=== PATIENT | female | born 1960 | race Caucasian/White ===

== ENCOUNTER → 2016-08-06 | Outpatient (CLI) | payer OTHER ==
--- NOTE | 2016-08-07 08:22 | RAD ---
EXAM DESCRIPTION: XR FOOT 3 OR MORE VIEWS CLINICAL HISTORY: FOOT PAIN COMPARISON: None available FINDINGS: Three views of the left foot show no acute fracture or malalignment. There is calcaneal spurring at the insertion sites of the plantar fascia Achilles tendon. No radiopaque foreign body or soft tissue gas. The joint spaces are fairly well maintained. IMPRESSION: Calcaneal spurring, otherwise unremarkable exam. Electronically signed by: Florian Darden DO 08/07/2016 08:20
== END ==
LOC: LAB.O 18:13
PROVIDERS: ATTEND Nurse Practitioner Family
DX: M79.672 Pain in left foot (principal); M77.32 Calcaneal spur, left foot

== ENCOUNTER 2017-01-21 16:55 | Emergency (ER) | payer OTHER ==
[2017-01-21] MEDS ORDERED: NITROGLYCERIN 0.4 MG 25 EA TAB SL ONE ×2 (17:04)
--- NOTE | 2017-01-21 17:12 | ED.PDOC ---
History of Present Illness - General Chief Complaint: Chest Pain/ND Stated Complaint: substernal/epigastric pain radiating to back/R shoulder Time Seen by Provider: 01/21/17 17:01 Source: patient, RN notes reviewed, Vital Signs reviewed Exam Limitations: no limitations - History of Present Illness Initial Comments: Patient reports just after lunch, ~1 pm, she developed sharp, stabbing lower substernal/epigastric pain that went through to her back. She took some Alkaseltzer and a nap but when she woke up the pain was still present but was a dull ache 3/10. + SOB, nausea and diaphoresis. Feels like she can't take a deep breath. No history of cardiac issues. No family hx of cardiac issues, both parents passed from cancer. She does have a history of reflux but was concerned because symptoms did not resolve with OTC medications. Timing/Duration: 4-6 hours Severity/Quality: mild, severe, aching, dull, sharp, stabbing Location: substernal, epigastric Chest Pain Radiation: back Activities at Onset: other - just finished eating Prior Chest Pain/Cardiac Workup: no prior chest pain, no prior cardiac workup Improving Factors: medication - improved but did not resolve with antacids Nitro Today/Relief: 0.4 mg x 1, provided by ED, mild relief - pain improved from 3/10 to 1/10 with resolution of R shoulder pain Aspirin Treatment Today: 81 mg x 4, provided by ED Associated Symptoms: back pain, diaphoresis, heartburn, nausea/vomiting, shortness of breath Allergies/Adverse Reactions: Allergies NO KNOWN ALLERGY Allergy (Verified 01/21/17 17:20) Review of Systems - Review of Systems Constitutional: States: diaphoresis. Denies: chills, fever, malaise, weakness EENTM: States: no symptoms reported Respiratory: States: see HPI, short of breath Cardiology: States: see HPI, chest pain. Denies: edema, palpitations, syncope Gastrointestinal/Abdominal: States: see HPI, abdominal pain, nausea. Denies: constipation, diarrhea, vomiting Genitourinary: States: no symptoms reported Musculoskeletal: States: back pain Skin: States: no symptoms reported Neurological: States: no symptoms reported Endocrine: States: no symptoms reported Hematologic/Lymphatic: States: no symptoms reported Family Medical History - Family History Mother Family History: Unknown Physical Exam - Physical Exam General Appearance: Alert, Anxious, No apparent distress, Well Developed, Well Groomed, Well Hydrated, Well Nourished, Other - appears uncomfortable and SOB Neck: non-tender, full range of motion, supple, normal inspection Respiratory: chest non-tender, lungs clear, normal breath sounds, no respiratory distress, no accessory muscle use Cardiovascular/Chest: normal peripheral pulses, regular rate, rhythm, no edema, no gallop, no JVD, no murmur Peripheral Pulses: dorsalis pedis,right: 2+, dorsalis pedis,left: 2+ Gastrointestinal/Abdominal: normal bowel sounds, non tender, soft, no organomegaly, no pulsatile mass Extremity: normal range of motion, non-tender, normal inspection, no pedal edema Neurologic: alert, normal mood/affect, oriented x 3 Skin Exam: normal color, warm/dry Lymphatic: no adenopathy Comments: Vital Signs - 24 hr 01/21/17 01/21/17 01/21/17 16:58 17:28 18:00 Temperature 97.1 F L Pulse Rate [ 66 67 63 left brachial] Respiratory 20 20 18 Rate Blood Pressure 157/98 114/73 129/79 [left brachial] O2 Sat by Pulse 100 100 98 Oximetry Progress - Progress Progress: 01/21/17 18:00 Initial labs, EKG and CXR look good. Patient reports still having some mild back pain but CP and SOB have improved. She would really like to go home and not wait for the second set of cardiac enzymes. The initial set was drawn >4 hours after the onset of her symptoms. Will give a GI cocktail and see if her symptoms resolve. She is agreeable to waiting to see if this helps. 01/21/17 18:12 Patient reports symptoms are completely resolved with the GI cocktail and would like to go home. Will d/c home with warning to return if symptoms recur. - Results/Orders Results/Orders: Laboratory Tests 01/21/17 01/21/17 17:15 17:15 WBC 8.1 RBC 4.99 Hgb 14.8 Hct 44.0 MCV 88.2 MCH 29.6 MCHC 33.6 RDW 13.9 Plt Count 246 MPV 8.9 Absolute Neuts (auto) 4.90 Absolute Lymphs (auto) 2.10 Absolute Monos (auto) 0.70 Absolute Eos (auto) 0.30 Absolute Basos (auto) 0.10 Neutrophils % 60.1 Lymphocytes % 26.3 Monocytes % 9.1 H Eosinophils % 3.7 Basophils % 0.8 Sodium 139 Potassium 3.9 Chloride 106 Carbon Dioxide 25 Anion Gap 11.9 L BUN 13 Creatinine 0.97 BUN/Creatinine Ratio 13.4 Random Glucose 99 Serum Osmolality 277.7 Calcium 9.2 Total Bilirubin 0.3 AST 24 ALT 23 Alkaline Phosphatase 38 L Creatine Kinase 86 CK-MB (CK-2) 2.0 CK-MB (CK-2) % Not Reportable Troponin I < 0.02 B-Natriuretic Peptide 55.4 Serum Total Protein 7.2 Albumin 4.2 Globulin 3.0 Albumin/Globulin Ratio 1.4 - EKG/XRAY/CT EKG: Sinus, no ST T wave changes Comments: Rate 61 XRAY: chest - Normal per Radiologist Departure - Departure Clinical Impression: Esophageal spasm Chest pain Qualifiers: Chest pain type: unspecified Qualified Code(s): R07.9 - Chest pain, unspecified Time of Disposition: 18:13 Disposition: Discharge to Home or Self Care Condition: Good Departure Forms: ED Discharge - Pt. Copy, Patient Portal Self Enrollment Instructions: DI for Chest Pain Diet: resume usual diet Activity: increase activity as tolerated Referrals: Sandeep Andrews MD [Primary Care Provider] - 1-2 Weeks
[2017-01-21] MEDS ORDERED: ASPIRIN (CHEWABLE) 81 MG TAB PO ONE (17:14)
--- NOTE | 2017-01-21 17:23 | RAD ---
EXAM DESCRIPTION: Chest,1 View CLINICAL HISTORY: 56 years Female, chest pain/SOB COMPARISON: None. TECHNIQUE: AP portable chest. FINDINGS: Fair expansion of the lungs is evident without consolidation, layering effusion, or large mass. Heart size and vascularity appear normal for AP technique and degree of inspiration. No gross bony, hilar, or mediastinal abnormalities are noted. IMPRESSION: Normal chest, one view Electronically signed by: Phill Arredondo MD 01/21/2017 5:22 PM CDT
[2017-01-21 17:33] VITALS: TEMP 97.1
[2017-01-21] MEDS ORDERED: LIDOCAINE VIS-MYLANTA 30 ML UD PO ONE (17:54)
[2017-01-21 18:03] VITALS: BP 129/79; O2SAT 98
== END 2017-01-21 18:22 | disposition home or self-care (01) ==
LOC: ER 16:55
DX: K22.4 Dyskinesia of esophagus (principal); R07.9 Chest pain, unspecified

== ENCOUNTER → 2019-04-11 | Outpatient (CLI) | payer BC, OTHER ==
--- NOTE | 2019-04-11 17:42 | MRI ---
PROVIDED CLINICAL HISTORY/REASON FOR EXAM: CERVICAL RADICULITIS TECHNIQUE: Multiplanar, multisequence MRI examination performed of the cervical spine without intravenous contrast material. COMPARISON: August 31, 2012, March 31, 2019 FINDINGS: Alignment: No acute subluxation. Minimal degenerative retrolisthesis C3 on C4. Postoperative: C5-C7 anterior cervical discectomy and fusion. Fracture: None present. Prevertebral / Paraspinal Soft Tissues: Unremarkable. Cervicomedullary Junction: Unremarkable. Cervical Spinal Cord: Normal. C1/2: No significant abnormality. C2/3: Asymmetric left disc bulge osteophyte complex. Moderate left neural foraminal narrowing. No significant right neural foraminal narrowing. No significant central canal stenosis. Left facet and uncinate process hypertrophy. C3/4: Symmetric disc bulge osteophyte complex. The extruded disc contents extend into the canal by approximately 2 mm. Mild central canal stenosis. Indentation of the ventral cord. No underlying cord signal abnormality. Moderate bilateral neural foraminal narrowing. Bilateral facet and uncinate process hypertrophy. C4/5: Asymmetric right disc bulge osteophyte complex. Severe right and moderate left neural foraminal narrowing. Bilateral facet and uncinate process hypertrophy. Mild central canal stenosis. No underlying cord signal abnormality. C5/6: Discectomy and fusion. Asymmetric right osteophytosis posteriorly. Mild left neural foraminal narrowing. Moderate right neural foraminal narrowing. No significant central canal stenosis. C6/7: Discectomy and fusion. Asymmetric right osteophytosis posteriorly. Mild left and moderate right neural foraminal narrowing. No significant central canal stenosis. C7/T1: Right nerve root sleeve cyst measuring 9 mm, stable. No significant central canal or neural foraminal narrowing. IMPRESSION: 1. Redemonstrated C5-C7 anterior cervical discectomy and fusion. 2. Multilevel cervical spondylosis with neural foraminal narrowing and central canal stenosis as above. Electronically signed by: Navid Whitten MD 04/11/2019 5:40 PM CDT
--- NOTE | 2019-04-11 18:12 | MRI ---
EXAM DESCRIPTION: Knee,Left CLINICAL HISTORY: Possible MENISCUS TEAR, pain, instability. No injuries recalled. COMPARISON: 02/18/2019. TECHNIQUE: MRI of the left knee is performed with multiplanar multi sequence imaging, without intravenous contrast. FINDINGS: Bone and joint small tricompartmental osteophyte formation. No focal bony contusion or acute fracture. Small knee knee joint effusion. Cartilage: Grade two chondrosis involves the medial knee compartment. Grade two chondrosis involves the lateral knee compartment with focal grade 4 chondral fissuring along the lateral tibial plateau. Patchy areas of grade 4 chondral loss at the lateral patella facet and lateral trochlear, grade 3 chondral loss at the medial patellar facet. Medial meniscus: Nondisplaced horizontal cleavage tear of the posterior horn and body surfacing inferiorly. Lateral meniscus: Intact Anterior cruciate ligament: Intact Posterior cruciate ligament: Intact Medial collateral ligament: Intact Lateral collateral ligament: Intact Popliteus tendon: Intact Biceps femoris tendon: Intact Iliotibial band: Intact Medial and lateral retinaculum: Intact Extensor mechanism: The distal quadriceps tendon is intact. The patella tendon is intact. Soft tissues: No Kat's cyst. Small ganglion cyst measuring 2 cm adjacent to the lateral head gastrocnemius proximal femoral attachment and ganglion cyst measuring 1.7 cm posterior to the distal PCL. IMPRESSION: 1. Nondisplaced medial meniscus tear. 2. Moderate right knee osteoarthrosis with patchy areas of grade 4 (full-thickness) chondral loss at the patellofemoral compartment. 3. Small posterior knee ganglion cysts. Electronically signed by: Andrae Cain DO 04/11/2019 6:10 PM CDT
--- NOTE | 2019-04-12 07:52 | MRI ---
EXAM DESCRIPTION: Shoulder,Right CLINICAL HISTORY: 58 years Female, SHOULDER IMPINGEMENT SYNDROME COMPARISON: None. TECHNIQUE: Noncontrast multiplanar multisequence magnetic resonance imaging of the right shoulder. FINDINGS: Severe acromioclavicular joint osteoarthrosis present with marrow reactive signal within the distal clavicle on the opposing acromion. Large undersurface spurs are present extending into the rotator cuff outlet indenting the myotendinous junction of the supraspinatus. Moderate size subacromial/subdeltoid bursitis. There is type II acromial morphology. No significant anterolateral downsloping is present. Mild thickening along the coracoacromial ligament is present often associated with adhesive capsulitis. The supraspinatus, infraspinatus and subscapularis tendons exhibit normal thickness and signal intensity. No high-grade partial thickness or full-thickness rotator cuff tendon tear is present. No muscle atrophy. The long head of the biceps tendon is positioned within the intertubercular groove. The bicipital labral anchor is intact. There is mild undersurface fraying involving the posterior aspect of the superior labrum. No high-grade chondral labral separation or labral tearing. Glenohumeral joint articular surface is smooth. No glenoid rim sclerosis. There is no Hill-Sachs deformity. IMPRESSION: Severe AC joint osteoarthritis. Adhesive capsulitis. Moderate subacromial/subdeltoid bursitis. Intact rotator cuff. No high-grade chondral labral separation or labral tearing. Electronically signed by: Misael Frost MD 04/12/2019 7:51 AM CDT
== END ==
LOC: MRI 10:58
PROVIDERS: ATTEND Family Medicine
DX: S83.242D Other tear of medial meniscus, current injury, left knee, subsequent encounter (principal); M67.462 Ganglion, left knee; M50.10 Cervical disc disorder with radiculopathy, unspecified cervical region; M75.41 Impingement syndrome of right shoulder; M19.011 Primary osteoarthritis, right shoulder; M75.01 Adhesive capsulitis of right shoulder; M75.51 Bursitis of right shoulder; M17.11 Unilateral primary osteoarthritis, right knee

== ENCOUNTER → 2019-04-28 | Outpatient (CLI) | payer BC ==
--- NOTE | 2019-04-30 10:36 | RAD ---
EXAM DESCRIPTION: Knee,Left Complete: CR/DR/XR. CLINICAL HISTORY: 58 years FemaleKNEE PAIN COMPARISON: Radiographs of the pelvis on the same visit. MRI scan of the knee 04/11/2019. TECHNIQUE: 4 views AP lateral and PA standing and patellar sunrise view left knee. FINDINGS: Marginal spur superior patella, lateral patella, and in the tibial spine. Minimal narrowing of the medial compartment. Overall bone density is decreased. No fracture or significant effusion. No abnormal radiodense objects in the soft tissues or joint spaces. IMPRESSION: Bicompartmental osteoarthritis medial and patellofemoral compartments. Decreased bone density. No acute bony abnormality. Electronically signed by: Ajith Vasquez MD 04/30/2019 10:34 AM CDT
--- NOTE | 2019-04-30 10:38 | RAD ---
EXAM DESCRIPTION: Pelvis: CR/DR/XR CLINICAL HISTORY: PAIN IN LEFT HIP COMPARISON: Left knee radiographs on this visit. TECHNIQUE: One view FINDINGS: No fracture. Overall bone density decreased. Bilateral hip joints are symmetric with minimal subchondral sclerosis in the acetabula. No fractures. No abnormal radiodense objects in the soft tissues. Bilateral inferior SI joints with periarticular sclerosis and inferior spurs. IMPRESSION: Minimal loss of bone density. No fractures. Early arthrosis in the bilateral SI joints. Electronically signed by: Ajith Vasquez MD 04/30/2019 10:36 AM CDT
== END ==
LOC: RAD 10:02
PROVIDERS: ATTEND Orthopaedic Surgery
DX: M17.12 Unilateral primary osteoarthritis, left knee (principal); M85.862 Other specified disorders of bone density and structure, left lower leg; M47.898 Other spondylosis, sacral and sacrococcygeal region

== ENCOUNTER → 2019-04-28 | Outpatient (CLI) | payer BC | LOC: LAB.O 12:16 | PROVIDERS: ATTEND Orthopaedic Surgery | DX: Z01.818 Encounter for other preprocedural examination (principal) ==

== ENCOUNTER → 2019-05-06 | Outpatient (CLI) | payer BC | LOC: GMAHI 12:26 | PROVIDERS: ATTEND Nurse Practitioner Family | DX: E34.8 Other specified endocrine disorders (principal) ==

== ENCOUNTER 2019-05-10 05:40 | Day surgery (SDC) | payer BC ==
--- NOTE | 2019-05-09 11:10 | HP ---
CHIEF COMPLAINT: Left knee pain. HISTORY OF PRESENT ILLNESS: Conchita is a 59-year-old female with a history of pain in the left knee. It has been going on for at least 2 years. She has pain that is an 8 at its worst. There has been popping and clicking. She has had use of [id number] medicines which give her occasional relief. She has had injections. None of that has given her any long-term relief. The pain is pretty much on a continual basis and she cannot identify any specific aggravating factors. Secondary to her failure of conservative measures, she has requested operative intervention. After discussing the risks, benefits and alternatives to that, she has given informed consent. MEDICATIONS: 1. Nature thyroid. 2. Multiple vitamin. 3. Anti-inflammatory. PAIN CONTRACT: None. ALLERGIES: NO KNOWN DRUG ALLERGIES. SOCIAL HISTORY: She does not use tobacco products. She drinks on occasion. She uses no recreational drugs. FAMILY HISTORY: None pertinent to today's complaint. REVIEW OF SYSTEMS: Negative except as indicated in the History of Present Illness. HEENT: The patient reports no symptoms. RESPIRATORY: The patient reports no symptoms. CARDIOVASCULAR: The patient reports no symptoms. GASTROINTESTINAL: The patient reports no symptoms GENITOURINARY: The patient reports no symptoms. MUSCULOSKELETAL: Negative except as noted in History of Present Illness. SKIN: The patient reports no symptoms. NEUROLOGIC: The patient reports no symptoms. PHYSICAL EXAMINATION: VITAL SIGNS: Blood pressure 124/80. Pulse 64. Height 5'5". Weight 179 pounds. MENTAL STATUS: The patient is awake, alert, and is able to give a good history and participate in the physical. The patient is oriented to person, place and time. SKIN: Normal tone and turgor. HEENT: Normocephalic, atraumatic. Pupils equal, round and reactive. Mucosal membranes are moist. NECK: Normal range of motion. No thyromegaly, no lymphadenopathy. CHEST: Normal respiratory excursion. CARDIAC: Regular rate and rhythm. No murmurs, rubs or gallops. MUSCULOSKELETAL: She has full range of motion in bilateral upper extremities. She has intact sensation and they are warm and well perfused. She has 5/5 strength. There is no deformity and no crepitus. She has right lower extremity with full range of motion in the hip, knee, ankle and digits. She has no pain. She has no malalignment. The extremity is warm and well perfused. There is no deformity. She has no effusion in the knee. The left lower extremity shows full range of motion in the hip. She has full extension of the knee with flexion to about 125 degrees. It is warm and well perfused. Sensation is intact. She has no varus/valgus deformity. There is no effusion. She has severe pain medially and mild pain laterally. She has pain with patella palpation. She does have palpable clicking today along the medial aspect of the knee. She has 5/5 strength. RADIOLOGY: My interpretation of the x-rays shows no acute bony abnormality. My interpretation of the MRI shows evidence of meniscal pathology. ASSESSMENT: 1. Knee pain. 2. Meniscal tearing. 3. Arthritis. PLAN: The plan at this point is for knee arthroscopy. We have discussed the risks, benefits, and alternatives to that and the patient has given informed consent. #[id number] [facility]
[2019-05-10] MEDS ORDERED: PROPOFOL 200 MG/20 ML VIAL IV ONE (10:00)
[2019-05-10] MEDS ORDERED: LIDOCAINE 1% 10 ML VIAL INJ ONE ×2 (10:00→13:35)
[2019-05-10] MEDS ORDERED: DEXAMETHASONE INJ 10 MG/ML VIAL IV ONE (10:00)
[2019-05-10] MEDS ORDERED: raNITIdine HCL INJ 25 MG/ML VIAL IV ONE (10:00)
[2019-05-10] MEDS ORDERED: SODIUM CHL 0.9% 100ML MINI-BAG 100 ML IVPB ONE (11:27)
[2019-05-10] MEDS ORDERED: LACTATED RINGERS 1,000 ML ONE (11:28)
[2019-05-10] MEDS ORDERED: ceFAZolin SODIUM 1 GM VIAL ONE ×2 (11:28→12:12)
[2019-05-10] MEDS ORDERED: VANCOMYCIN HCL INJ 1,000 MG VIAL IVPB ONE (12:12)
[2019-05-10] MEDS ORDERED: BUPIVACAINE LIPOSOME 13.3 MG/ML VIAL INJ ONE (12:13)
[2019-05-10] MEDS ORDERED: KETAMINE HCL 100 MG/ML VIAL ONE (12:25)
[2019-05-10] MEDS ORDERED: MIDAZOLAM INJ 2 MG/2 ML VIAL ONE (12:25)
[2019-05-10] MEDS ORDERED: fentaNYL CITRATE INJ 50 MCG/ML AMP ONE (12:26)
[2019-05-10] MEDS: BUPIVACAINE 0.5% 30 ML VIAL INJ ONE ×2 (13:35→14:10)
[2019-05-10] MEDS ORDERED: KETOROLAC TROMETHAMINE INJ 30 MG/ML VIAL ONE (14:25)
[2019-05-10] MEDS ORDERED: HYDROmorphone HCL INJ 2 MG/ML VIAL ONE (14:38)
[2019-05-10] MEDS ORDERED: ONDANSETRON INJ 4 MG/2 ML VIAL ONE (14:38)
--- NOTE | 2019-05-11 08:29 | OP ---
DATE OF PROCEDURE: 05/10/19 PREOPERATIVE DIAGNOSIS: 1. Meniscus tear. POSTOPERATIVE DIAGNOSIS: 1. Tear of the posterior body of the medial meniscus. 2. Full thickness cartilage loss in the patellofemoral joint. 3. Grade 2 to 3 cartilage damage in the medial compartment. 4. Degenerative fraying of the lateral meniscal body. 5. Medial plica. PROCEDURE: 1. Partial medial meniscectomy. 2. Removal of plica. 3. Debridement of lateral meniscus. SURGEON: Adi Morataay MD. TRIM TECHNICIAN: Ajith Garcia CST, SA-C. ANESTHESIA: General anesthesia. COMPLICATIONS: None. FINDINGS: 1. Unstable tear of the medial meniscus posterior body. 2. Grade 2 to 3 cartilaginous degradation in the medial compartment. 3. Normal ACL and normal PCL. 4. Normal lateral femoral condyle. 5. Degenerative fraying of the lateral meniscus. 6. Normal lateral gutter. 7. Full thickness cartilage loss on the patellofemoral joint. 8. Normal suprapatellar pouch. 9. Normal medial plica. 10. Normal medial gutter. INDICATION: Conchita has a history of knee pain that has been refractory to conservative measures. She developed mechanical symptoms and, as such, in addition to her failure of conservative measures, she has requested operative intervention. After discussing the risks, benefits and alternatives to operative therapy, the patient has given informed consent. PROCEDURE: The patient was brought to the Operating Room and placed in supine position. General anesthesia was induced and the patient's leg was sterilely prepped and draped. Following prepping and draping, standard anteromedial and anterolateral portals were established. Diagnostic arthroscopy was carried out with the above findings. Attention was then focused on medial meniscal body which was debrided using a 3.5 mm full radius shaver. Following that, attention was focused on the lateral meniscus where the free edge was debrided. The medial and lateral menisci were thoroughly probed to ensure stability. Attention was then focused on the medial plica which was debrided. The knee was thoroughly irrigated and drained. Following draining of the knee, the wounds were closed with Nylon suture. Sterile dressings were placed. The patient was awoken from anesthesia and taken to Recovery. POSTOPERATIVE PLAN: The patient will be non-weightbearing for the time being and will see her in about 3 days. #[id number] [facility]
[2019-05-11 12:10] VITALS: BP 114/72; TEMP 97.1; O2SAT 99
== END 2019-05-10 16:25 | disposition home or self-care (01) ==
LOC: AMB 05:40
PROVIDERS: ATTEND Orthopaedic Surgery
DX: M23.222 Derangement of posterior horn of medial meniscus due to old tear or injury, left knee (principal); M23.201 Derangement of unspecified lateral meniscus due to old tear or injury, left knee; M67.52 Plica syndrome, left knee; K21.9 Gastro-esophageal reflux disease without esophagitis; Z90.49 Acquired absence of other specified parts of digestive tract; Z90.710 Acquired absence of both cervix and uterus; Z98.84 Bariatric surgery status; Z87.891 Personal history of nicotine dependence; Z88.1 Allergy status to other antibiotic agents
CPT/HCPCS: 01400; 29875; 29881; 80307; J0690; J1100; J1170; J1885; J2250; J2405; J2780; J3010; J3370; J3490; J7050; J7120

== ENCOUNTER 2019-06-07 05:30 | Day surgery (SDC) | payer BC ==
--- NOTE | 2019-06-06 09:46 | HP ---
CHIEF COMPLAINT: Right shoulder pain. HISTORY OF PRESENT ILLNESS: Ms. Alcala is a 59-year-old female with a history of pain in the right shoulder that has been going on for at least 2 years. The pain is pretty constant at a 3, but can radiate higher with certain activities. She denies any trauma related to the onset of this and denies any neurologic symptoms. The pain seems to be localized to the area of the acromioclavicular joint. It is sharp in nature. There is no direct radiation of the pain. She has no notable alleviating factors. Aggravating factors include range of motion and lifting. She has used anti-inflammatories and has also had injection. Because of her failure of conservative measures, she has requested operative intervention. MRI and x-ray were remarkable for pathology at the acromioclavicular joint. After discussing the risks, benefits and alternatives to subacromial decompression and distal clavicle resection, she has given informed consent for that. PAST SURGICAL HISTORY: 1. Hysterectomy. 2. Knee arthroscopy. 3. Bilateral ankle surgery. 4. Laparoscopic banding. 5. Neck surgery. MEDICATIONS: 1. Natural thyroid. 2. Biotin. 3. Vitamin. 4. Calcium. 5. Naprosyn. PAIN CONTRACT: None. ALLERGIES: NO KNOWN DRUG ALLERGIES. CODE STATUS: Full code. IMMUNIZATIONS: Up to date. SOCIAL HISTORY: The patient does not smoke or use any illicit drugs. She does drink on occasion. FAMILY HISTORY: None pertinent to today's complaint. REVIEW OF SYSTEMS: Positive for gastroesophageal reflux disease. Otherwise, negative except as indicated in the History of Present Illness. HEENT: The patient reports no symptoms. RESPIRATORY: The patient reports no symptoms. CARDIOVASCULAR: The patient reports no symptoms. GASTROINTESTINAL: The patient reports no symptoms GENITOURINARY: The patient reports no symptoms. MUSCULOSKELETAL: Negative except as noted in History of Present Illness. SKIN: The patient reports no symptoms. NEUROLOGIC: The patient reports no symptoms. PHYSICAL EXAMINATION: VITAL SIGNS: Blood pressure 139/74. Pulse 59. Height 5'5". Weight 185 pounds. MENTAL STATUS: The patient is awake, alert, and is able to give a good history and participate in the physical. The patient is oriented to person, place and time. SKIN: Normal tone and turgor. HEENT: Normocephalic, atraumatic. Pupils equal, round and reactive. Mucosal membranes are moist. NECK: Normal range of motion. No thyromegaly, no lymphadenopathy. CHEST: Normal respiratory excursion. CARDIAC: Regular rate and rhythm. No murmurs, rubs or gallops. MUSCULOSKELETAL: The bilateral lower extremities show full active range of motion. She has no significant pain with range of motion to the extremities. There is no malalignment, no deformity. The extremity is warm and well perfused. Strength is 5/5 and equal bilaterally. The left upper extremity shows full active range of motion without pain. She has intact sensation throughout. Strength is 5/5. It is warm and well perfused She has a negative belly press, negative Neer and negative Owusu. She has negative empty can. There is no crepitus with range of motion of any of the upper extremity joints. The right upper extremity shows severe pain to palpation over the acromioclavicular joint. She has mild to moderate pain over the subacromial space. She has a positive Neer and positive Owusu. She has positive pain with cross-chest adduction. She has intact sensation. [employer] strength is 5/5. She has full active abduction and forward flexion. She has a negative belly press. She has no malalignment or deformity. She has full range of motion in the elbow, wrist and digits. Sensation is intact distally as well. RADIOLOGY: My interpretation of the MRI shows evidence of acromioclavicular joint arthritis and subacromial bursitis. ASSESSMENT: 1. Impingement syndrome. 2. Bursitis. PLAN: The plan at this point is for subacromial decompression and distal clavicle resection. We have discussed the risks, benefits, and alternatives to that and the patient has given informed consent. #[id number] [facility]
[2019-06-07] MEDS ORDERED: ceFAZolin SODIUM 1 GM VIAL ONE ×2 (05:50→06:44)
[2019-06-07] MEDS ORDERED: LACTATED RINGERS 1,000 ML ONE (05:50)
[2019-06-07] MEDS ORDERED: SODIUM CHL 0.9% 100ML MINI-BAG 100 ML IVPB ONE (05:50)
[2019-06-07] MEDS ORDERED: MIDAZOLAM INJ 5 MG/5 ML VIAL ONE (06:32)
[2019-06-07] MEDS ORDERED: KETAMINE HCL 100 MG/ML VIAL ONE (06:32)
[2019-06-07] MEDS ORDERED: ROCURONIUM BROMIDE 10 MG/ML VIAL ONE (06:32)
[2019-06-07] MEDS ORDERED: fentaNYL CITRATE INJ 50 MCG/ML AMP ONE (06:32)
[2019-06-07] MEDS ORDERED: SUGAMMADEX SODIUM 200 MG/2 ML VIAL IV ONE (06:33)
[2019-06-07] MEDS ORDERED: BUPIVACAINE 0.5% 30 ML VIAL INJ ONE ×2 (06:44→06:49)
[2019-06-07] MEDS ORDERED: VANCOMYCIN HCL INJ 1,000 MG VIAL IVPB ONE (06:44)
[2019-06-07] MEDS ORDERED: BUPIVACAINE LIPOSOME 13.3 MG/ML VIAL INJ ONE ×2 (06:44→06:50)
[2019-06-07] MEDS: HYDROmorphone HCL INJ 2 MG/ML VIAL ONE ×6 (09:24→10:14)
[2019-06-07] MEDS ORDERED: DEXAMETHASONE INJ 10 MG/ML VIAL IV ONE (10:00)
[2019-06-07] MEDS ORDERED: PROPOFOL 200 MG/20 ML VIAL IV ONE (10:00)
[2019-06-07] MEDS ORDERED: raNITIdine HCL INJ 25 MG/ML VIAL IV ONE (10:00)
[2019-06-07] MEDS ORDERED: LIDOCAINE 1% 10 ML VIAL INJ ONE (10:00)
[2019-06-07] MEDS ORDERED: ONDANSETRON INJ 4 MG/2 ML VIAL ONE (12:01)
[2019-06-07] MEDS ORDERED: SODIUM CHLORIDE 0.9% 100ML 100 ML IVPB ONE (12:03)
[2019-06-07] MEDS ORDERED: PROMETHAZINE HCL INJ 25 MG/ML VIAL ONE (12:03)
[2019-06-07 13:57] VITALS: BP 123/68; TEMP 96.8; O2SAT 98
--- NOTE | 2019-06-08 13:20 | OP ---
DATE OF PROCEDURE: 06/07/19 PREOPERATIVE DIAGNOSIS: 1. Impingement syndrome, right shoulder. POSTOPERATIVE DIAGNOSIS: 1. Impingement syndrome, right shoulder. PROCEDURE: 1. Subacromial decompression. 2. Distal clavicle resection. SURGEON: Adi Morataya MD. CHILD PSYCHOLOGY TEACHER: Ajith Garcia CST, SA-C. ANESTHESIA: General anesthesia. COMPLICATIONS: None. FINDINGS: 1. Advanced arthritis of the acromioclavicular joint. 2. Subacromial bursitis. 3. Subdeltoid bursitis. 4. Downsloping acromion. INDICATION: Ms. Alcala has a history of shoulder pain that has been very severe and refractory to conservative measures. She has requested operative intervention. After discussing the risks, benefits and alternatives to that, the patient has given informed consent for that. PROCEDURE: The patient was brought to the Operating Room and placed in the supine position. General anesthesia was induced and the patient was transitioned into the beach chair position. The arm and shoulder were sterilely prepped and draped. Following prepping and draping, an incision was made at the lateral border of the acromion. Full thickness skin flaps were developed. Following that, the acromioclavicular joint was identified. Full thickness periosteal flaps were developed and the distal approximately 7 to 8 mm of the distal clavicle was resected. The wound was very thoroughly irrigated and the periosteum was reapproximated. Attention was then focused on the subacromial region. A split was made between the anterior and middle heads of the deltoid and complete bursectomy was performed. An acromioplasty was performed. The rotator cuff was identified. There did not appear to be any tears in the rotator cuff. The wound was very thoroughly irrigated and closed with a combination of running and interrupted subcuticular stitches. Sterile dressings were placed. The patient was placed in a sling, awoken from anesthesia and taken to Recovery. POSTOPERATIVE PLAN: She is going to remain in her sling and has been encouraged to do range of motion of the digits. She will followup with us in approximately 2 days. We will begin early passive range of motion on her. #[id number] [facility]
== END 2019-06-07 13:55 | disposition home or self-care (01) ==
LOC: AMB 05:30
PROVIDERS: ATTEND Orthopaedic Surgery
DX: M75.41 Impingement syndrome of right shoulder (principal); M75.51 Bursitis of right shoulder; M19.011 Primary osteoarthritis, right shoulder; Z90.710 Acquired absence of both cervix and uterus; Z79.899 Other long term (current) drug therapy
CPT/HCPCS: 00450; 23120; 23130; 80048; 80307; 81001; 85025; J0690; J1100; J1170; J2250; J2550; J2780; J3010; J3370; J3490; J7050; J7120